=== PATIENT | male | born 1950 | race Caucasian/White ===

== ENCOUNTER → 2016-02-29 | Outpatient (CLI) | payer OTHER ==
[~2016-02-29] MED LIST: AMLO-110 PO; ASPI81TA28 PO; SIMV20TA2 PO
[2016-02-29 14:09] LABS: ALT/SGPT 32 U/L (12-78); AST/SGOT 16 U/L (15-37); BLOOD UREA NITROGEN 10 mg/dl (7-18); BUN/CREATININE RATIO 10.3 (10-20); CALCIUM 8.9 mg/dl (8.5-10.1); CARBON DIOXIDE 31 mmol/L (21-32); CHLORIDE 105 mmol/L (98-107); CREATININE 0.93 mg/dl (0.60-1.40); GLUCOSE 80 mg/dl (70-99); POTASSIUM 4.2 mmol/L (3.5-5.1); SODIUM 142 mmol/L (136-145)
[2016-02-29 14:15] LABS: ALB/GLOB RATIO 1.2 (0.9-2); ALKALINE PHOSPHATASE 51 U/L (45-117); CHOLESTEROL 147 mg/dl (0-200); CHOLESTEROL/HDL RATIO 3.3; HDL CHOLESTEROL 44 mg/dl; LDL CHOLESTEROL CALCULATED 82 mg/dl; TRIGLYCERIDES 105 mg/dl (0-150); VERY LOW DENSITY LIPOPROT CALC 21 mg/dl
== END | disposition home or self-care (01) ==
LOC: C.LABBC 10:48
PROVIDERS: ATTEND Family Medicine
DX: R39.9 Unspecified symptoms and signs involving the genitourinary system (principal); E78.5 Hyperlipidemia, unspecified; I10 Essential (primary) hypertension; E83.51 Hypocalcemia

== ENCOUNTER → 2017-05-03 | Outpatient (CLI) | payer OTHER, MEDICARE ==
--- NOTE | 2017-05-03 11:31 | DIAGNOSTIC IMAGING REPORT ---
R EXTREMITY NONVASCULAR LIMITED CLINICAL HISTORY: 66 years-old Male presenting with M25.869 Mass of knee right posterior [id number]. TECHNIQUE: Real-time grayscale and limited color Doppler ultrasound imaging of the right popliteal fossa was performed for a focused evaluation at the site of clinical concern. COMPARISON: None. FINDINGS: At the site of clinical concern in the right popliteal fossa, a 3.3 x 3.2 x 7.3 cm anechoic collection is evident. The collection has a well-defined thick wall. Papillary excrescences are evident. Color Doppler was not performed to evaluate for vascularity. Normal internal echoes noted. No surrounding subcutaneous or interfascial edema. IMPRESSION: 1. Fluid collection in the right popliteal fossa most likely represents a popliteal cyst. If this does represent a popliteal cyst, there is evidence of synovitis. To exclude the unlikely possibility of a cystic mass, contrast-enhanced MR of the knee would better evaluate this abnormality. Electronically signed by: Brandon Cortés M.D. 05/03/2017 11:30 AM Dictated Date/Time: 05/03/2017 11:27 AM
== END | disposition home or self-care (01) ==
LOC: C.ULTR 10:55
PROVIDERS: ATTEND Physician Assistant
DX: M25.861 Other specified joint disorders, right knee (principal)

== ENCOUNTER → 2017-05-08 | Outpatient (CLI) | payer OTHER, MEDICARE ==
[2017-05-08 13:56] LABS: BLOOD UREA NITROGEN 11 mg/dl (7-18); CALCIUM 8.8 mg/dl (8.5-10.1); CARBON DIOXIDE 30 mmol/L (21-32); CREATININE 0.79 mg/dl (0.60-1.40); GLUCOSE 95 mg/dl (70-99); POTASSIUM 3.9 mmol/L (3.5-5.1); SODIUM 140 mmol/L (136-145)
== END | disposition home or self-care (01) ==
LOC: C.LABPBG 10:04
PROVIDERS: ATTEND Physician Assistant
DX: Z00.00 Encounter for general adult medical examination without abnormal findings (principal); I10 Essential (primary) hypertension; M25.869 Other specified joint disorders, unspecified knee

== ENCOUNTER → 2017-05-10 | Outpatient (CLI) | payer OTHER, MEDICARE ==
[~2017-05-10] MED LIST changes: +GADAVIST IV PRN
--- NOTE | 2017-05-10 14:37 | DIAGNOSTIC IMAGING REPORT ---
MRI THE RIGHT KNEE WITHOUT AND WITH CONTRAST CLINICAL HISTORY: RIGHT KNEE MASS trauma COMPARISON STUDY: No previous studies for comparison. FINDINGS: Imaging was performed in the sagittal, axial, and coronal planes. Images performed after the administration of 8.5 cc of intravenous Gadavist were acquired. There are no suspicious areas of marrow replacement. There is a bipartite patella. There is mild reactive marrow edema within the posterior aspect of the medial femoral condyle. The patellar retinacular structures appear intact. The quadriceps and patellar tendons appear intact. The anterior and posterior cruciate ligaments appear intact. The medial and lateral collateral ligaments appear intact. The lateral meniscus appears intact. There is a horizontal tear involving the posterior horn the medial meniscus. There is a small suprapatellar joint effusion. There is a 77 x 23 x 42 mm popliteal cyst. This contains a small amount of debris. There is mild synovial enhancement. The popliteal cyst is felt to correlate with the patient's palpable abnormality. There is chondrosis involving the medial patellar facet and posterior aspect of the medial femoral condyle. IMPRESSION: 1. 77 x 23 x 42 mm mildly complex popliteal cyst. This is felt to be chronic with the patient's palpable abnormality. 2. Tear involving the posterior horn of the medial meniscus 3. 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 Electronically signed by: Calvin Donis M.D. 05/10/2017 2:36 PM Dictated Date/Time: 05/10/2017 2:28 PM
== END | disposition home or self-care (01) ==
LOC: C.MRI 12:41
PROVIDERS: ATTEND Physician Assistant
DX: M25.861 Other specified joint disorders, right knee (principal); R93.8 Abnormal findings on diagnostic imaging of other specified body structures; M71.21 Synovial cyst of popliteal space [Baker], right knee; S83.241A Other tear of medial meniscus, current injury, right knee, initial encounter; X58.XXXA Exposure to other specified factors, initial encounter

== ENCOUNTER → 2017-09-13 | Outpatient (CLI) | payer OTHER, MEDICARE ==
[~2017-09-13] MED LIST changes: -AMLO-110 PO; +AMLO5TAB3 PO; -GADAVIST IV PRN
[2017-09-13 12:50] LABS: HEMOGLOBIN 14.6 g/dL (14.0-18.0); MEAN CELL VOLUME 93.9 fL (80-100); MEAN CORPUSCULAR HEMOGLOBIN 31.9 pg (25-34); PLATELET COUNT 292 K/uL (130-400); RED CELL DISTRIBUTION WIDTH CV 12.9 % (11.5-14.5); RED CELL DISTRIBUTION WIDTH SD 44.5 fL (36.4-46.3); WHITE BLOOD COUNT 7.97 K/uL (4.8-10.8)
[2017-09-13 13:03] LABS: ALT/SGPT 37 U/L (12-78); AST/SGOT 21 U/L (15-37); BLOOD UREA NITROGEN 10 mg/dl (7-18); CALCIUM 8.7 mg/dl (8.5-10.1); CARBON DIOXIDE 29 mmol/L (21-32); CHOLESTEROL 100 mg/dl (0-200); CREATININE 0.94 mg/dl (0.60-1.40); GLUCOSE 111 mg/dl (70-99); LDL CHOLESTEROL CALCULATED 44 mg/dl; POTASSIUM 4.3 mmol/L (3.5-5.1); SODIUM 141 mmol/L (136-145)
== END | disposition home or self-care (01) ==
LOC: C.LABPBG 10:23
PROVIDERS: ATTEND Family Medicine
DX: I10 Essential (primary) hypertension (principal); I63.9 Cerebral infarction, unspecified; E78.5 Hyperlipidemia, unspecified